=== PATIENT | male | born 1950 | race Caucasian/White ===

== ENCOUNTER 2023-10-02 13:25 | Emergency (ER) | payer MEDICARE, SELFPAY ==
[2023-10-02 13:41] VITALS: BP 153/97
--- NOTE | 2023-10-02 13:43 | ED.PDOC.TRB ---
ED Provider Triage
-
A medical screening examination has been initiated by a qualified medical provider. Based on the assessment performed at this time, it has been determined that an emergent medical condition may exist and the patient has been informed that further
medical evaluation and possible additional diagnostic testing may be needed.
HPI: This is a medical evaluation conducted in person to initiate diagnostic evaluation and provide initial therapeutics. Please see further documentation by the treating clinician.
GENERAL: Alert , in no apparent distress
EYE: No visual abnormalities.
NECK: Trachea midline
ENT: No visible abnormalities.
LUNGS: No acute respiratory distress
NEUROLOGICAL: Alert and oriented
SKIN: Laceration to thumb.
MUSCULOSKELETAL: Moving extremities normally
PSYCH: Normal and appropriate interaction.
73-year-old male [id number] presents with a left thumb puncture wound from the tool when he was working on a car today. Patient has a laceration to the base of his left thumb but full range of motion and no numbness or tingling. He does
not believe that the tool hit his bone. He has no bony tenderness. On exam he has a 1 cm laceration to the ulnar aspect of the left thumb webspace, normal sensation and strength, no bony tenderness. Tetanus is outdated. Will order a tetanus shot
[2023-10-02] MEDS: ADACEL 0.5 ML IM (13:52)
--- NOTE | 2023-10-02 15:14 | ED.GENMED ---
History of Present Illness
General
Chief Complaint: Skin Surface Trauma
Source: patient
Time Seen by Provider: 10/02/23 14:47
History of Present Illness
History of Present Illness:
73-year-old male who is sustained a laceration to the left first webspace after he was using a tool to fix his motorcycle. Patient states that it slipped and cut him. He states this is atypical for him as he never typically gets injured and is
more careful. Denies any other complaints. No loss of function. No numbness or tingling. Unknown tetanus
Past History
Past History
ED Past Medical History: HTN
ED Past Surgical History: None
Social History
Tobacco: Non-smoker
Alcohol: None
Phy Exam
Physical Exam
Physical Exam:
CONSTITUTIONAL Vital signs reviewed, Patient alert and oriented to person, place and time. Well-appearing
HEAD atraumatic, normocephalic.
EYES eyelids normal to inspection, Extraocular muscles intact, Conjunctiva normal, Sclera normal.
NECK normal range of motion, Trachea midline, no jugular venous distention.
RESP no respiratory distress
BACK No obvious deformities
UPPER EXTREMITY Gross Range of motion normal, gross motor strength normal. Normal flexion and extension and normal strength in flexion and extension against resistance. Normal abduction. Normal adduction.
LOWER EXTREMITY Gross range of motion normal, Gross motor strength normal
NEURO Speech normal, No focal motor deficits include, Dalton coma scale 15, Memory normal, Cranial Nerves intact to screening exam.
SKIN Skin warm, dry, and normal in color.
PSYCHIATRIC Patient oriented to person place and time, Normal affect.
Course
Orders/Labs/Results
Orders:
Orders
10/02/23 13:43
Tetanus/Diphth/Acelpertussis [Adacel] 0.5 ml IM .ONCE ONE
Vital Signs
Initial and Last Documented VS:
Initial Vital Signs
Temp Pulse Resp BP Pulse Ox
97.8 F 85 16 153/97 97
08/26/24 13:41 10/02/23 13:41 10/02/23 13:41 10/02/23 13:41 10/02/23 13:41
Last Documented Vital Signs
Temp Pulse Resp BP Pulse Ox
97.8 F 85 16 153/97 97
10/02/23 13:41 10/02/23 13:41 10/02/23 13:41 10/02/23 13:41 10/02/23 13:41
Procedures
Laceration Closure
Left Hand:
Status of Wound: clean
Description of Wound Edges: sharp
Preparation: cleaned with saline
Anesthesia: 1% Lidocaine with epi
Revision/Debridement: routine- no revision
Wound exploration: explored to base- no FB
Type of Closure: single layer closure
Skin Closure Material: 4-0 nylon
Number of sutures: 3
MDM/Problems Addressed
MDM/Problems Addressed:
Acute hand laceration, acute on chronic hypertension
*Pulse Oximetry
Patient hypoxic: no
*Critical Care Note
Total Time (30-74mins, 75-104mins- exclusive of procedures): Not Applicable
Data Reviewed
Source: patient
Patient Management
Escalation/DeEscalation of care consider admission/obs:
Laceration repaired. Bulky dressing applied
ED Attending Note
-
Portions of this chart may have been created with voice recognition software.� Occasional wrong word or��sound alike� substitutions may have occurred due to the inherent limitations of voice recognition software.
Discharge Plan
Departure
Patient Disposition: Home (Routine Discharge)
Date of Disposition: 10/02/23
Time of Disposition: 15:14
Patient with high blood pressure during this ER visit?: Yes
Discharge Problem:
Hand laceration
Instructions: Laceration Repair With Stitches (DC), BLOOD PRESSURE
Prescriptions:
No Action
hydroxyzine pamoate [Vistaril] 25 MG capsule
25 mg PO HS PRN (Reason: insomnia) Qty: 20 0RF
Referrals:
Alpesh Gross MD [Family Provider] -
Activity Restrictions/Additional Instructions:
Please have sutures removed in next 7 to 10 days. Return for drainage, redness, fevers or any other concerns
Interventions
Interventions:
*Risk Screen - Suicide Last Done: 10/02/23 13:41
*General Assessment Last Done: 10/02/23 13:41
*Neglect/Abuse Screening Last Done: 10/02/23 13:41
ED- Fall Risk Assessment Last Done: 10/02/23 13:55
ED-Skin Assessment Last Done: 10/02/23 13:55
Discharge Date and Time
Print Language: MONEGASQUE
== END 2023-10-02 15:30 | disposition home or self-care (01) ==
LOC: EMR 13:25
PROVIDERS: EMERGENCY PHYSICIAN Emergency Medicine; FAMILY PHYSICIAN Family Medicine
DX: S61.412A Laceration without foreign body of left hand, initial encounter (principal); W27.8XXA Contact with other nonpowered hand tool, initial encounter; Y93.89 Activity, other specified; Z23 Encounter for immunization; I10 Essential (primary) hypertension
CPT/HCPCS: 99282; 90471; 90715